=== PATIENT | male | born 1975 | race Native Hawaiian/Other Pacific Islander ===

== ENCOUNTER 2019-01-14 12:38 | Emergency (ER) | payer SELFPAY ==
--- NOTE | 2019-01-14 13:06 | Emergency Department Report ---
Blank Doc - Documentation Documentation: 43-year-old male that presents with abscess to left back area. This initial assessment/diagnostic orders/clinical plan/treatment(s) is/are subject to change based on patient's health status, clinical progression and re- assessment by fellow clinical providers in the ED. Further treatment and workup at subsequent clinical providers discretion. Patient/guardians urged not to elope from the ED as their condition may be serious if not clinically assessed and managed. Initial orders include: 1- Patient sent to [facility] for further evaluation and treatment
[2019-01-14 13:08] VITALS: BP 132/84
[2019-01-14] MEDS ORDERED: CLINDAMYCIN 300 MG CAP PO ONE (15:24)
--- NOTE | 2019-01-14 15:28 | Emergency Department Report ---
ED General Adult HPI - General Chief complaint: Skin/Abscess/Foreign Body Stated complaint: SPIDER BITE Time Seen by Provider: 01/14/19 13:05 Source: patient Mode of arrival: Ambulatory Limitations: No Limitations - History of Present Illness Initial comments: Is a 43-year-old male who presents complaining of redness and pain to his left lower flank region 3 days. Patient's systolic pencils by a spider. Patient states he felt the pain. Usable Flex something bit him. Patient states he's had redness and pain to the area since 3 days ago. He denies fever/chills/nausea vomiting abdominal pain. - Related Data Previous Rx's Medication Instructions Recorded Last Taken Type Clindamycin [Clindamycin CAP] 300 mg PO TID #20 capsule 01/14/19 Unknown Rx Ibuprofen [Motrin] 800 mg PO Q8HR #20 tablet 01/14/19 Unknown Rx Allergies Allergy/AdvReac Type Severity Reaction Status Date / Time No Known Allergies Allergy Unverified 01/14/19 13:07 ED Review of Systems ROS: Stated complaint: SPIDER BITE Other details as noted in HPI Comment: All other systems reviewed and negative ED Past Medical Hx - Past Medical History Previous Medical History?: No - Surgical History Past Surgical History?: No - Social History Smoking Status: Current Every Day Smoker - Medications Home Medications: Home Medications Medication Instructions Recorded Confirmed Last Taken Type Clindamycin [Clindamycin CAP] 300 mg PO TID #20 capsule 01/14/19 Unknown Rx Ibuprofen [Motrin] 800 mg PO Q8HR #20 tablet 01/14/19 Unknown Rx ED Physical Exam - General Limitations: No Limitations General appearance: alert, in no apparent distress - Head Head exam: Present: atraumatic, normocephalic - Eye Eye exam: Present: normal appearance - ENT ENT exam: Present: mucous membranes moist - Neck Neck exam: Present: normal inspection - Respiratory Respiratory exam: Present: normal lung sounds bilaterally. Absent: respiratory distress - Cardiovascular Cardiovascular Exam: Present: regular rate, normal rhythm. Absent: systolic murmur, diastolic murmur, rubs, gallop - GI/Abdominal GI/Abdominal exam: Present: soft, normal bowel sounds - Rectal Rectal exam: Present: deferred - Extremities Exam Extremities exam: Present: normal inspection - Back Exam Back exam: Present: normal inspection, full ROM, other (small redness to lower left flank area, non tender) - Neurological Exam Neurological exam: Present: alert, oriented X3 - Psychiatric Psychiatric exam: Present: normal affect, normal mood - Skin Skin exam: Present: warm, dry, intact, normal color. Absent: rash ED Course Vital Signs 01/14/19 12:43 Temperature 97.9 F Pulse Rate 99 H Respiratory 16 Rate Blood Pressure 132/84 O2 Sat by Pulse 99 Oximetry ED Medical Decision Making - Medical Decision Making 43-year-old male presents with cellulitis from an insect bite. Discussed with patient to apply heat compression 3 times a day to the area or redness. Discussed antibiotic therapy 3 times a day. Discussed the follow-up care physician. 5 days. Vital signs are normal patient is in no acute distress. Critical care attestation.: If time is entered above; I have spent that time in minutes in the direct care of this critically ill patient, excluding procedure time. ED Disposition Clinical Impression: Insect bite, Cellulitis Disposition: DC- TO HOME OR SELFCARE Is pt being admited?: No Does the pt Need Aspirin: No Condition: Stable Instructions: Cellulitis (ED), Insect Bite or Sting (ED) Additional Instructions: Make sure to follow up with the primary care physician as discussed. Take all your medications as you've been prescribed. If you have any worsening symptoms or develop new symptoms please return to ED immediately. Prescriptions: Clindamycin [Clindamycin CAP] 300 mg PO TID #20 capsule Ibuprofen [Motrin] 800 mg PO Q8HR #20 tablet Referrals: [facility] [Outside] - 3-5 Days [facility] [Outside] - 3-5 Days Forms: Accompanied Note, Work/School Release Form(ED) Time of Disposition: 15:30
== END 2019-01-14 15:56 | disposition home or self-care (01) ==
LOC: ED 12:38
DX: S30.860A Insect bite (nonvenomous) of lower back and pelvis, initial encounter (principal); S30.861A Insect bite (nonvenomous) of abdominal wall, initial encounter; F17.200 Nicotine dependence, unspecified, uncomplicated; Z79.899 Other long term (current) drug therapy; W57.XXXA Bitten or stung by nonvenomous insect and other nonvenomous arthropods, initial encounter; Y93.89 Activity, other specified; Y92.89 Other specified places as the place of occurrence of the external cause; Y99.8 Other external cause status

== ENCOUNTER 2021-04-03 15:23 | Emergency (ER) | payer SELFPAY ==
[2021-04-03] MEDS ORDERED: diphenhydrAMINE 50 MG/ML VIAL IV ONE (16:43)
[2021-04-03] MEDS ORDERED: ACETAMINOPHEN 500 MG TAB PO ONE (16:43)
[2021-04-03] MEDS ORDERED: METOCLOPRAMIDE 10 MG/2 ML INJ IV ONE (16:43)
[2021-04-03] MEDS ORDERED: LIDOCAINE (4%) 40 MG/ML TOPICAL SOLN 50 ML BOTTLE TP ONE (16:43)
--- NOTE | 2021-04-03 16:44 | Emergency Department Report ---
ED General Adult HPI - General Chief complaint: Chest Pain Stated complaint: Headache, chest wall pain, left arm pain/numbness PUI?: Yes Time Seen by Provider: 04/03/21 15:53 Source: patient, RN notes reviewed Mode of arrival: Ambulatory Limitations: No Limitations - History of Present Illness Initial comments: The patient was evaluated in the emergency department for symptoms described in the history of present illness. He/she was evaluated in the context of the global COVID-19 pandemic, which necessitated consideration that the patient might be at risk for infection with the virus that causes COVID-19. Institutional protocols and algorithms that pertain to the evaluation of patients at risk for COVID-19 are in a state of rapid change based on information released by regulatory bodies including the CDC and federal and state organizations. These policies and algorithms were followed during the patient's care in the emergency department. Please note that these policies, procedures and recommendations changed on a rapid basis. The patient is a 45-year-old gentleman, who is not known to myself previously, who is right-hand dominant, who reports that he is COVID-19 vaccinated. He denies chronic medical conditions. He presents to the ER with a complaint of headache, anterior and bilateral chest wall pain, and left arm radicular pain/discomfort. The headache is not sudden or thunderclap in nature. The headache is not maximal in intensity at the onset. The headache is not described as the worst headache of his life. There is no trauma, neck pain or neck stiffness. No recent chiropractic manipulation, no recent motor vehicle accident. No sore throat, no loss of vision. Positive loss of taste/smell. The chest wall pain is central and bilateral anterior chest wall. It does not radiate to the back, arms and neck. The patient denies vomiting, diaphoresis and exertional shortness of breath. The patient denies travel, surgery, immobilization, leg pain, leg swelling, immobilization, DVT/PE risk factors. The patient denies bladder/bowel retention incontinence and saddle anesthesia. The patient felt much improved in the emergency room, after appropriate analgesic medications -: Gradual, hour(s), days(s) Location: head, chest, left, upper extremity Severity scale (0 -10): 4 Quality: burning, aching Consistency: intermittent Improves with: none Worsens with: none - Related Data Previous Rx's Medication Instructions Recorded Last Taken Type Acetaminophen [Non-Aspirin Extra 500 mg PO Q6HR PRN #30 tablet 04/03/21 Unknown Rx Strength] Ibuprofen [Motrin] 600 mg PO Q8H PRN #30 tablet 04/03/21 Unknown Rx Metoclopramide [Reglan] 10 mg PO QID PRN #30 tablet 04/03/21 Unknown Rx Allergies Allergy/AdvReac Type Severity Reaction Status Date / Time No Known Allergies Allergy Verified 04/03/21 15:26 ED Review of Systems ROS: Stated complaint: headache, numbeness Other details as noted in HPI Constitutional: fever. denies: malaise, weakness Eyes: other (Positive loss of taste/smell). denies: eye discharge, vision change ENT: denies: congestion Respiratory: denies: cough Cardiovascular: chest pain Genitourinary: denies: dysuria Musculoskeletal: denies: back pain, arthralgia, myalgia Neurological: headache, paresthesias. denies: weakness, abnormal gait ED Past Medical Hx - Past Medical History Additional medical history: RAMON'S PALSY - Surgical History Past Surgical History?: No - Social History Smoking Status: Current Every Day Smoker - Medications Home Medications: Home Medications Medication Instructions Recorded Confirmed Last Taken Type Acetaminophen [Non-Aspirin Extra 500 mg PO Q6HR PRN #30 tablet 04/03/21 Unknown Rx Strength] Ibuprofen [Motrin] 600 mg PO Q8H PRN #30 tablet 04/03/21 Unknown Rx Metoclopramide [Reglan] 10 mg PO QID PRN #30 tablet 04/03/21 Unknown Rx ED Physical Exam - General Limitations: No Limitations General appearance: alert, in no apparent distress - Head Head exam: Present: atraumatic, normocephalic - Eye Eye exam: Present: normal appearance, PERRL, EOMI, other (Visual acuity intact to finger counting, color perception, reading at a close distance). Absent: nystagmus - ENT ENT exam: Present: normal exam, normal orophraynx, mucous membranes moist, normal external ear exam - Neck Neck exam: Present: normal inspection, full ROM. Absent: tenderness, meningismus - Respiratory Respiratory exam: Present: normal lung sounds bilaterally, chest wall tenderness. Absent: respiratory distress, wheezes, rales, rhonchi, stridor - Cardiovascular Cardiovascular Exam: Present: normal rhythm, tachycardia, normal heart sounds. Absent: bradycardia, systolic murmur, diastolic murmur, rubs, gallop - GI/Abdominal GI/Abdominal exam: Present: soft. Absent: distended, tenderness, guarding, rebound, rigid, pulsatile mass - Rectal Rectal exam: Present: deferred - Extremities Exam Extremities exam: Present: normal inspection, full ROM, other (2+ pulses noted in the bilateral upper and lower extremities. There is no palpable cord. negative Homans sign. Muscular compartments are soft. The pelvis is stable.). Absent: pedal edema, calf tenderness - Back Exam Back exam: Present: normal inspection, full ROM. Absent: tenderness, CVA tend erness (R), CVA tenderness (L), paraspinal tenderness, vertebral tenderness - Neurological Exam Neurological exam: Present: alert, oriented X3, normal gait, reflexes normal (Sensation is intact to light touch and proprioception in the bilateral upper and lower extremities. Downgoing plantar reflexes bilaterally.), other (There is no facial droop. The tongue is midline. Extraocular movements are intact bilaterally. There is 5 out of 5 strength in bilateral upper and lower extremities. Sensation is intact to light touch bilateral upper and lower extremities. There is no past-pointing. There is no pronator drift.). Absent: motor sensory deficit - Psychiatric Psychiatric exam: Present: normal affect, normal mood - Skin Skin exam: Present: warm, dry, intact, normal color. Absent: rash ED Course Vital Signs 04/03/21 04/03/21 04/03/21 15:30 16:27 17:54 Temperature 99.5 F 99.9 F H Pulse Rate 114 H 103 H Respiratory 20 18 Rate Blood Pressure 139/70 108/63 [Right] O2 Sat by Pulse 100 100 98 Oximetry - Reevaluation(s) Reevaluation #1: 04/03/21 19:52 At the time of discharge, final heart rate is 83 beats per/ minute ED Medical Decision Making - Lab Data Result diagrams: 04/03/21 16:51 04/03/21 16:51 Vital Signs 04/03/21 04/03/21 04/03/21 15:30 16:27 17:54 Temperature 99.5 F 99.9 F H Pulse Rate 114 H 103 H Respiratory 20 18 Rate Blood Pressure 139/70 108/63 [Right] O2 Sat by Pulse 100 100 98 Oximetry Lab Results 04/03/21 04/03/21 04/03/21 Range/Units 16:51 16:51 16:51 WBC 5.2 (4.5-11.0) K/mm3 RBC 4.65 (3.65-5.03) M/mm3 Hgb 12.7 (11.8-15.2) gm/dl Hct 38.6 (35.5-45.6) % MCV 83 L (84-94) fl MCH 27 L (28-32) pg MCHC 33 (32-34) % RDW 14.0 (13.2-15.2) % Plt Count 343 (140-440) K/mm3 Lymph % (Auto) 7.9 L (13.4-35.0) % [place] % (Auto) 12.1 H (0.0-7.3) % Eos % (Auto) 0.1 (0.0-4.3) % Baso % (Auto) 0.0 (0.0-1.8) % Lymph # (Auto) 0.4 L (1.2-5.4) K/mm3 [place] # (Auto) 0.6 (0.0-0.8) K/mm3 Eos # (Auto) 0.0 (0.0-0.4) K/mm3 Baso # (Auto) 0.0 (0.0-0.1) K/mm3 Seg Neutrophils % 79.9 H (40.0-70.0) % Seg Neutrophils # 4.1 (1.8-7.7) K/mm3 PT 13.9 (12.2-14.9) Sec. INR 0.96 (0.87-1.13) APTT 32.9 (24.2-36.6) Sec. Thrombin Time 14.3 L (15.1-19.6) Sec. Sodium 134 L (137-145) mmol/L Potassium 4.3 (3.6-5.0) mmol/L Chloride 97.1 L (98-107) mmol/L Carbon Dioxide 23 (22-30) mmol/L Anion Gap 18 mmol/L BUN 9 (9-20) mg/dL Creatinine 0.9 (0.8-1.3) mg/dL Estimated GFR > 60 ml/min BUN/Creatinine Ratio 10 % Glucose 99 (75-100) mg/dL Calcium 8.8 (8.4-10.2) mg/dL Magnesium (1.7-2.3) mg/dL Total Bilirubin 0.30 (0.1-1.2) mg/dL AST 17 (5-40) units/L ALT 33 (7-56) units/L Alkaline Phosphatase 95 (35-129) units/L Total Creatine Kinase 177 H (55-170) units/L CK-MB (CK-2) 1.0 (0.0-4.0) ng/mL CK-MB (CK-2) Rel Index 0.5 (0-4) Troponin T < 0.010 (0.00-0.029) ng/mL Total Protein 8.0 (6.3-8.2) g/dL Albumin 4.3 (3.9-5) g/dL Albumin/Globulin Ratio 1.2 % // Range/Units 16:51 WBC (4.5-11.0) K/mm3 RBC (3.65-5.03) M/mm3 Hgb (11.8-15.2) gm/dl Hct (35.5-45.6) % MCV (84-94) fl MCH (28-32) pg MCHC (32-34) % RDW (13.2-15.2) % Plt Count (140-440) K/mm3 Lymph % (Auto) (13.4-35.0) % [place] % (Auto) (0.0-7.3) % Eos % (Auto) (0.0-4.3) % Baso % (Auto) (0.0-1.8) % Lymph # (Auto) (1.2-5.4) K/mm3 [place] # (Auto) (0.0-0.8) K/mm3 Eos # (Auto) (0.0-0.4) K/mm3 Baso # (Auto) (0.0-0.1) K/mm3 Seg Neutrophils % (40.0-70.0) % Seg Neutrophils # (1.8-7.7) K/mm3 PT (12.2-14.9) Sec. INR (0.87-1.13) APTT (24.2-36.6) Sec. Thrombin Time (15.1-19.6) Sec. Sodium (137-145) mmol/L Potassium (3.6-5.0) mmol/L Chloride (98-107) mmol/L Carbon Dioxide (22-30) mmol/L Anion Gap mmol/L BUN (9-20) mg/dL Creatinine (0.8-1.3) mg/dL Estimated GFR ml/min BUN/Creatinine Ratio % Glucose (75-100) mg/dL Calcium (8.4-10.2) mg/dL Magnesium 2.10 (1.7-2.3) mg/dL Total Bilirubin (0.1-1.2) mg/dL AST (5-40) units/L ALT (7-56) units/L Alkaline Phosphatase (35-129) units/L Total Creatine Kinase 172 H (55-170) units/L CK-MB (CK-2) (0.0-4.0) ng/mL CK-MB (CK-2) Rel Index (0-4) Troponin T (0.00-0.029) ng/mL Total Protein (6.3-8.2) g/dL Albumin (3.9-5) g/dL Albumin/Globulin Ratio % - EKG Data -: EKG Interpreted by Nm EKG shows normal: sinus rhythm Rate: tachycardia - EKG Data When compared to previous EKG there are: previous EKG unavailable 04/03/21 19:28 EKG is interpreted at 15: 45 Sinus rhythm, tachycardia, rate 113 bpm. Borderline rightward axis deviation. QTc 424 ms. High left ventricular voltage. Normal P wave axis. Repolarization abnormality noted. This is an abnormal EKG. This is not a STEMI aVL is demonstrating a negatively deflected QRS complex. Uncertain if this is lead malposition 04/03/21 19:45 EKG #2 is interpreted at 19: 37 Sinus rhythm, with a rate of 82 bpm. There is a borderline normal axis deviation. There is high left ventricular voltage. There is repolarization abnormality. This EKG is abnormal. This EKG is not a STEMI. ST abnormality in lead III is likely secondary to repolarization. - Radiology Data Radiology results: pending, report reviewed, image reviewed CT BRAIN: 04/03/2021 INDICATION / CLINICAL INFORMATION: headache and left arm pain/numbness. COMPARISON: None available. FINDINGS: BRAIN/INTRACRANIAL STRUCTURES: Unenhanced CT images of the brain demonstrate no evidence of acute abnormality. Ventricles and sulci are normal in size and shape. There is no evidence of hemorrhage or mass. There are no abnormal extra-axial fluid collections. EXTRACRANIAL STRUCTURES: Unremarkable. IMPRESSION: No acute abnormality. Negative unenhanced CT of the brain. All CT scans at this location are performed using dose reduction to ALARA by means of automated exposure control. Signer Name: Lul Jose MD Signed: 04/03/2021 5:08 PM Workstation Name: [id number] CHEST 2 VIEWS INDICATION / CLINICAL INFORMATION: chest pain. COMPARISON: None available. FINDINGS: SUPPORT DEVICES: None. HEART / MEDIASTINUM: No significant abnormality. LUNGS / PLEURA: No significant pulmonary or pleural abnormality. No pneumothorax. ADDITIONAL FINDINGS: No significant additional findings. IMPRESSION: 1. No acute findings. Signer Name: Tung Ugalde MD Signed: 04/03/2021 4:14 PM Workstation Name: [id number] - Medical Decision Making Differential diagnosis, including but not limited to: COVID-19, migraine headache, tension headache, cluster headache, cervical radiculopathy, myocarditis, pericarditis, coronary artery disease Assessment and plan: 45-year-old gentleman, who is COVID-19 vaccinated, presenting with a multiplicity of complaints, including headache, left arm radicular pain, chest wall pain. The patient denies travel, surgery, immobilization, DVT/PE risk factors. His tachycardia has resolved, he is not currently tachycardic, tachypneic or hypoxic, he is low risk by Wells criteria for pulmonary embolism, and low pretest probability by Wells criteria for pulmonary embolism. His troponin is negative x1 in the context of hours/days of symptoms, his EKG is not consistent with STEMI, given negative troponin x1, acute myocardial infarction is ruled out, EKG and negative troponin as well as resolution of tachycardia make myopericarditis very unlikely. The patient has a GCS of 15, with NIH score of 0, with no obvious neurologic deficits on my examination. His headache was treated aggressively, he felt improved, on my final reassessment, he is resting comfortably in his chair, in no acute distress, and endorses resolution of his symptoms. He may follow-up with an outpatient primary care doctor Critical care attestation.: If time is entered above; I have spent that time in minutes in the direct care of this critically ill patient, excluding procedure time. ED Disposition Clinical Impression: Headache, Radicular pain in left arm, Suspected 2019-nCoV infection, Chest wall pain Disposition: HOME / SELF CARE / HOMELESS Is pt being admited?: No Does the pt Need Aspirin: No Condition: Good Instructions: Nonspecific Chest Pain, Adult, Costochondritis, Radicular Pain Additional Instructions: In spite of being vaccinated, the patient may have COVID-19 the symptoms of COVID will typically persist 10 to 14 days. There is no cure at this time for COVID. Please make certain to self isolate and self quarantine, follow-up with an outpatient primary care doctor within the next 3 to 5 days, wash hands with soap and water frequently, thoroughly and often, p atient may take the prescribed medications as needed and directed. Advance diet and drink plenty of fluids as tolerated. Avoid interactions with the very elderly, very young, and those with chronic medical conditions. Return to the emergency room right away with new pain, worsening pain, migration of pain, projectile vomiting, change in mental status, confusion, inability to tolerate liquid feeds, new, worsened or different symptoms not present on the initial emergency room evaluation. We also suspect that the patient has pinched nerve in the cervical spine, contributing to left arm radicular pain. Please take the pain medications as needed and directed. Take the Reglan medication as needed for headache and nausea. Please return to the emergency room right away with new pain, worsened pain, migration of pain, projectile vomiting, change in mental status, confusion, inability tolerate liquid feeds, new, worsened or different symptoms not present on the initial emergency room evaluation Referrals: [facility] [Provider Group] - 3-5 Days Heart Score - HEART Score History: Slightly suspicious EKG: Non-specific Age: < 45 Risk factors: No known risk factors Troponin: < normal limit HEART Score: 1 - EKG Read Time Time EKG Completed: 15:45 EKG Read Time: 15:45 - Critical Actions Critical Actions: 0-3 pts:0.9-1.7%risk of adverse cardiac event.Candidate for discharge
--- NOTE | 2021-04-03 17:19 | XRay Report ---
CHEST 2 VIEWS INDICATION / CLINICAL INFORMATION: chest pain. COMPARISON: None available. FINDINGS: SUPPORT DEVICES: None. HEART / MEDIASTINUM: No significant abnormality. LUNGS / PLEURA: No significant pulmonary or pleural abnormality. No pneumothorax. ADDITIONAL FINDINGS: No significant additional findings. IMPRESSION: 1. No acute findings. Signer Name: Tung Ugalde MD Signed: 04/03/2021 5:14 PM Workstation Name: [id number]
[2021-04-03 17:22] LABS: Eosinophils % (Auto) 0.1 % (0.0-4.3); Hematocrit 38.6 % (35.5-45.6); Hemoglobin 12.7 gm/dl (11.8-15.2); Lymphocytes # (Auto) 0.4 K/mm3 (1.2-5.4); Lymphocytes % (Auto) 7.9 % (13.4-35.0); Mean Corpuscular HGB Conc 33 % (32-34); Mean Corpuscular Volume 83 fl (84-94); Monocytes # (Auto) 0.6 K/mm3 (0.0-0.8); Monocytes % (Auto) 12.1 % (0.0-7.3); Platelet Count 343 K/mm3 (140-440); Red Blood Count 4.65 M/mm3 (3.65-5.03)
[2021-04-03 17:32] LABS: INR 0.96 (0.87-1.13); Partial Thromboplastin Time 32.9 Sec. (24.2-36.6); Thrombin Time 14.3 Sec. (15.1-19.6)
[2021-04-03 17:44] LABS: Alanine Aminotransferase 33 units/L (7-56); Albumin 4.3 g/dL (3.9-5); BUN/Creatinine Ratio 10; Blood Urea Nitrogen 9 mg/dL (9-20); Calcium 8.8 mg/dL (8.4-10.2); Hemolysis Index 3
[2021-04-03 17:54] VITALS: BP 108/63
--- NOTE | 2021-04-03 18:12 | Cat Scan Report ---
CT BRAIN: 04/03/2021 INDICATION / CLINICAL INFORMATION: headache and left arm pain/numbness. COMPARISON: None available. FINDINGS: BRAIN/INTRACRANIAL STRUCTURES: Unenhanced CT images of the brain demonstrate no evidence of acute abn ormality. Ventricles and sulci are normal in size and shape. There is no evidence of hemorrhage or mass. There are no abnormal extra-axial fluid collections. EXTRACRANIAL STRUCTURES: Unremarkable. IMPRESSION: No acute abnormality. Negative unenhanced CT of the brain. All CT scans at this location are performed using dose reduction to ALARA by means of automated expos ure control. Signer Name: Lul Jose MD Signed: 04/03/2021 6:08 PM Workstation Name: [id number]
[2021-04-03] MEDS ORDERED: KETOROLAC 30 MG/1 ML INJ IV ONE (18:18)
--- NOTE | 2021-04-05 10:47 | Electrocardiograph Report ---
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
--- NOTE | 2021-04-05 10:49 | Electrocardiograph Report ---
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
== END 2021-04-03 20:04 | disposition home or self-care (01) ==
LOC: ED 15:23
DX: F17.200 Nicotine dependence, unspecified, uncomplicated (principal); G51.0 Bell's palsy; R51.9 Headache, unspecified; M79.602 Pain in left arm; M54.10 Radiculopathy, site unspecified; Z20.822 Contact with and (suspected) exposure to COVID-19
CPT/HCPCS: 36415; 70450; 71046; 80053; 82550; 82553; 83735; 84484; 85025; 85610; 85670; 85730; 93005; 96374; 96375; 99284; J1200; J1885; J2765